=== PATIENT | female | born 1980 | race Caucasian/White ===

== ENCOUNTER 2025-01-25 18:55 | Emergency (ER) | payer MEDICAID, OTHER ==
[~2025-01-25] VITALS: Ht 160 cm; Wt 61.0 kg
[2025-01-25 18:58] VITALS: BP 139/74; PULSE 71; RESP 18; TEMP 37; O2SAT 97
[2025-01-25 21:06] LABS: HEMATOCRIT. 37.8 % (36.0-48.0); HEMOGLOBIN. 12.3 g/dL (12.0-16.0); MEAN PLATELET VOLUME 7.5 fl (7.4-10.4); PLATELET 418 x1000/uL (130-400); RED BLOOD CELL COUNT 4.19 mill/uL (4.2-5.4); RED CELL DISTRIBUTION WIDTH 13.7 % (11.6-14.6)
[2025-01-25 21:15] LABS: CREATININE 0.8 mg/dL (0.6-1.0); UREA NITROGEN BLOOD 15 mg/dL (9-23)
[2025-01-25 21:22] LABS: LYMPHOCYTES % MANUAL 18.0 % (20.0-60.0); MONOCYTES % MANUAL 3.0 % (2.0-8.0); NEUTROPHILS % MANUAL 79.0 % (45.0-75.0); PLATELET ESTIMATE INCREASED
== END 2025-01-25 21:20 | disposition left against medical advice (07) ==
LOC: ER 18:55
DX: R53.1 Weakness (principal); F41.9 Anxiety disorder, unspecified; Z79.899 Other long term (current) drug therapy; Z53.29 Procedure and treatment not carried out because of patient's decision for other reasons
CPT/HCPCS: 36415; 80048; 85025; 99283